=== PATIENT | male | born 1970 | race Caucasian/White ===

== ENCOUNTER 2020-11-07 06:04 | Day surgery (SDC) | payer BC ==
[~2020-11-07] VITALS: Ht 165.1 cm; Wt 90.7 kg
[2020-11-07 08:37] VITALS: BP 106/66
[2020-11-15] MEDS ORDERED: MULTI VIT PO (10:20)
[2020-11-15] MEDS ORDERED: ERYTHROMYCIN B250 MG PO (10:26)
== END 2020-11-07 08:20 | disposition home or self-care (01) | DRG 951 ==
LOC: ENDO 06:04
PROVIDERS: ATTEND Surgery
PROC: 0DBH8ZX Excision of Cecum, Via Natural or Artificial Opening Endoscopic, Diagnostic (ICD-10-PCS; principal; 2020-11-07)
PROC: 0DBG8ZX Excision of Left Large Intestine, Via Natural or Artificial Opening Endoscopic, Diagnostic (ICD-10-PCS; 2020-11-07)
PROC: 3E0H8KZ Introduction of Other Diagnostic Substance into Lower GI, Via Natural or Artificial Opening Endoscopic (ICD-10-PCS; 2020-11-07)
DX: Z12.11 Encounter for screening for malignant neoplasm of colon (principal); D12.0 Benign neoplasm of cecum; D12.5 Benign neoplasm of sigmoid colon; D64.9 Anemia, unspecified; F17.220 Nicotine dependence, chewing tobacco, uncomplicated

== ENCOUNTER 2020-11-21 09:53 | Inpatient (IN) | payer BC ==
[~2020-11-21] VITALS: Ht 165.1 cm; Wt 89.0 kg
[2020-11-21] VITALS (8 sets, daily range): BP systolic 103–112; BP diastolic 56–75
[~2020-11-21 09:53] MED LIST: ERYTHROMYCIN B250 MG PO; MULTI VIT PO
[2020-11-21] MEDS ORDERED: METRONIDAZOL500 MG PO (10:12)
--- NOTE | 2020-11-21 15:10 | NUR ---
RECEIEVE PATIENT AND REPORT FROM [place] AND SILVERWARE SALESPERSON VERN AT THIS TIME. PATIENT ALERT AND ORIENTED AND STATED HIS PAIN LEVEL AT THIS TIME WAS ONLY A "2-3" AT THIS TIME. PATIENT ABDOMINAL DRESSINGS ARE DRY AND INTACT AT THIS TIME AND ABDOMINAL BINDER IN PLACE. PATIENT GIVEN AN ICE PACK FOR ADDOMINAL AREA AT THIS TIME. PATIENT HAS A SWAN #16 KOREAN THAT WAS PLACED IN OR AND IS DRAINING CLEAR YELLOW URINE AT THIS TIME. PATIENT DENIES THE NEED FOR 02 AT THIS TIME AND SPO2 IS 97% CURRENTLY. PATIENT GIVEN ROOM ORIENTATION AND FALL PROCEDURE PAPER WORK SIGNED AND PLACE IN CHART. SIDERAILS ARE UP X 2 CALL LIGHT WITHIN REACH. PATIENT IS NPO AT THIS TIME.
--- NOTE | 2020-11-21 17:02 | NUR ---
PATIENT COMPLIANING OF ACHING PAIN IN ABDOMEN AT THIS TIME. 1MG OF DILUDID GIVEN IV AT THIS TIME FOR PAIN OF "7" OUT OF THE PAIN SCALE OF 0-10. WILL CONTINUE TO MONITOR.
--- NOTE | 2020-11-21 17:47 | NUR ---
PATIENT RESTING AT THIS TIME PATIENT STATES HIS PAIN IS A 3-4 AND HE FEELS MUCH BETTER SINCE PAIN MED WAS GIVEN. ABDOMINAL DRESSING REMAINS DRY AND INTACT AND BINDER ON AT THIS TIME. SIDERAILS ARE UP CALL LIGHT IS WITHIN REACH.
--- NOTE | 2020-11-21 18:50 | NUR ---
REPORT RECEIVED FROM Ismael CONRAD RN.
--- NOTE | 2020-11-21 20:22 | NUR ---
PATIENT RESTING COMFORTABLY AT THIS TIME.PHYSICAL ASSEMENT COMPLETED AT THIS TIME. MEDICATED FOR ABDOMINAL PAIN 10/21 RELATED TO RECENT PROCEDURE. INCICIONS NOT ACCESIBLE, PATIENT IS WEARING ABDOMINAL BINDER. NORMAL HEART SOUNDS, LUNGS CLEAR BILATERALLY, PATIENT IS TO BE ON 2L OXYGEN VIA NASAL CANNULA BUT IS REFUSING. PATIENT SATS AT 98% ON ROOM AIRN. ACTIVE BOWEL SOUNDS. @20 IN RAC SL. PLAN OF CARE REVIWED AT THIS TIME. REINFORCED SAFETY PRECAUTIONS. CALL LIGHT AND BEDSIDE TABLE WITHIN REACH.
--- NOTE | 2020-11-21 23:46 | NUR ---
PATIENT STATES HE HAS NO PAIN AT THE MOMENT. ANTIBIOTIC HUNG PER EMAR. CALL LIGHT AND BEDSIDE TABLE WITHIN REACH.
[2020-11-22 00:18] VITALS: BP 106/68
[2020-11-22 04:58] VITALS: BP 98/65
--- NOTE | 2020-11-22 05:51 | NUR ---
PATIENT RESTING COMOFRTABLY, REPORTS PAIN 4/10. MEDICATED PER EMAR, CALL LIGHT AND BEDSIDE TABLE WITHIN REACH.
[2020-11-22 06:28] LABS: HEMOGLOBIN 9.7 g/dl (14.0-18.0); IMMATURE GRANULOCYTES 0.2 % (0.0-5.0); MEAN CORPUSCULAR HGB 23.3 pG CALC (26.0-32.0); MEAN CORPUSCULAR HGB CONC 31.5 g/dL CAL (32.0-36.0); RED BLOOD COUNT 4.16 mill/uL (4.70-6.10); RED CELL DISTRI WIDTH 14.8 % (11.5-15.5)
--- NOTE | 2020-11-22 06:30 | NUR ---
REINFORCED THE IMPORTANCE OF USING INCENTIVE SPIROMETER. PATIENT VERBALIZES UNDERSTANDING, BUT REFUSES TO TRY BECAUSE IT HURTS HIS ABDOMEN.
[2020-11-22 06:43] LABS: ANION GAP 11 (6-22 (CALC)); BUN 8 mg/dL (9-20); BUN/CREATININE RATIO 8 (12-20 (CALC)); CARBON DIOXIDE 24 mmol/l (22-30); CHLORIDE 103 mmol/l (95-108); GFR > 60 ML/MIN (>=60 (CALC)); GFR FOR AFR.AMER. > 60 ML/MIN (>=60 (CALC)); POTASSIUM 4.1 mmol/l (3.5-5.1); SODIUM 133 mmol/l (137-146)
[2020-11-22 07:01] LABS: HEMATOCRIT 30.8 % (39.0-50.0)
[2020-11-22 07:27] VITALS: BP 105/68
--- NOTE | 2020-11-22 07:27 | NUR ---
PT IN BED UPON ENTERING ROOM. PT IS ALERT AND ORIENTED. ASSESSMENT AND VITALS COMPLETED. S1 AND S2 HEARD UPON ASCULTATION. BINDER IN PLACE. SWAN INTACT AND DRAINING VIA GRAVITY. IV PATENT AND HEALTHY. SKIN DRY AND WARM. PEDAL PULSES BILATERALLY STRONG. PT COMPLAINED ABOUT INCENTIVE SPIROMETER, HE STATED IT HURTS WHEN HE TAKES DEEP BREATHS. NO OTHER NEEDS ARE NEEDED AT THIS TIME. NO PAIN REPORTED AT THIS TIME. CALL LIGHT WITHIN REACH.
--- NOTE | 2020-11-22 12:00 | NUR ---
PT IN BED. NO DISTRESS NOTED. CALL LIGHT WITHIN REACH.
--- NOTE | 2020-11-22 13:05 | NUR ---
LASHONDA'Hilario SWAN PER DR. CLARKE ORDER. PT TOLERATED WELL. NO DISTRESS NOTED.
--- NOTE | 2020-11-22 14:40 | NUR ---
AMBULATED PT IN THE HALLWAY. PT TOLERATED WELL. NO DISTRESS NOTED. CALL LIGHT WITHIN REACH. PT VOIDED AFTER CATHETER REMOVAL 200 ML.
--- NOTE | 2020-11-22 16:00 | NUR ---
PT IN BED. NO DISTRESS NOTED. CALL LIGHT WITHIN REACH.
[2020-11-22 16:30] VITALS: BP 109/68
[2020-11-22 20:00] VITALS: BP 115/70
--- NOTE | 2020-11-22 20:22 | NUR ---
PATIENT ASSISTED OOB TO BR TO VOID 300CC OF SUSANA URINE IN URINAL. PATIENT MIN ASSIST TO AMBULATE IN SIFUENTES-SLOW STEADY GAIT AND RETURNED TO ROOM. PATIENT ENCOURAGED TO USE IS Q1H W/A IN REPS OF 10. WILL NEED REINFORCEMENT. IVF D51/2NS WITH 29KCL PATENT AND INFUSING VIA RAC SITE AT 125CC/HR. SITE IS HEALTHY AT THIS TIME. ASSISTED BACK INTO BED. ABD DRESSING IS INTACT WITH SOME OLD SHADOWING NOTED ON DRESSING. ABD IS SOFT WITH BS+. ABD BINDER REAPPLIED. TAKING ICE CHIPS AND TOLERATING WELL. PATIENT IS REFUSING ZOFRAN AT THIS TIME. MEDICATED WITH DILAUDID ORDERED FOR POST-OP PAIN. SCD'S APPLIED TO BOTH LEGS. NO PERIPHERAL EDEMA NOTED. PULSES ARE PALPABLE. SAFETY PRECAUTIONS REINFORCED. CALL LIGHT IN REACH. WILL CONT TO MONITOR.
--- NOTE | 2020-11-22 22:44 | NUR ---
PATIENT C/O SEVERE ABD PAIN-10/10 ON PAIN SCALE. MEDICATED WITH DILAUDID 1MG IVP ORDERED FOR PAIN.ABD BINDER ADJUSTED. ABD DRESSING REMAINS UNCHANGED. IVF PATENT AND INFUSING VIA RAC SITE AT 125CC/HR. SITE REMAINS HEALTHY. REMAINS NPO EXCEPT FOR ICE CHIPS. CALL LIGHT IN REACH. WIUL CONT TO MONITOR.
--- NOTE | 2020-11-22 23:30 | NUR ---
PATIENT CONT TO C/O SEVERE ABD PAIN-APPEARS TO BE GAS PAIN. PATIENT STATES ONLY SLIGHT IMPROVEMENT WITH DILAUDID ANBD THEN BACK TO 10/10 ON PAIN SCALE. MEDICATED WITH TORADOL SCHEDULED. PROVIDED FAN FOR COMFORT. RESTING IN BED. CALL LIGHT IN REACH. WILL CONT TO MONITOR.
[2020-11-23] VITALS (13 sets, daily range): BP systolic 84–149; BP diastolic 52–83
--- NOTE | 2020-11-23 00:20 | NUR ---
PATIENT CONT TO HAVE SEVERE ABD PAIN-ASSISTED PATIENT UP TO THE BR-PASSES SMALL AMT OF YELLOW STOOL. DENIES PASSING ANY GAS. ENCOURAGED PATIENT TO AMBULATE BUT STATES THAT HE IS "TOO SPENT" AND RETURNED TO BED. ENCOURAGED PATIENT TO TURN AND REPOSITION IN BED AND TO USE PILLOW TO SPLINT ABD. CALL LIGHT IN REACH. WILL CONT TO MONITOR.
--- NOTE | 2020-11-23 00:49 | NUR ---
PATIENT BACK UP AND COMING OUT OF THE BR-ASSISTED PATIENT BACK TO BED. INSTRUCTED PATIENT NOT TO STRAIN TO HAVE BM-STATES THAT HE UNDERSTANDS. PATIENT STATES THAT HE IS NOT PASSING FLATUS BUT THIS CABIN EQUIPMENT SUPERVISOR DID HEAR PATIENT PASS SOME GAS. ABD IS SOFT WITH BS+. DRESSING IS UNCHANGED AND ABD BINDER ADJUSTED. MEDICATED AGAIN WITH DILAUDID 1MG IVP FOR 10/10 PPAIN SCALE.AGAIN ENCOURAGED AMBULATION BUT PATIENT STATES THAT HE CAN'T. HYPERVENTALATING WITH RAPID SHALLOW RESP. INSTRUCTED ON RELAXATION TECH TO SLOW RESP RATE. STATES THAT HE WILL TRY. CALL LIGHT IN REACH. WILL CONT TO [id number].
--- NOTE | 2020-11-23 03:18 | NUR ---
PATIENT CALLED C/O POST-OP PAIN AGAIN-6/10 ON PAIN SCALE. MEDICATED WITH DILAUDID 1MG IVP ORDERED FOR PAIN. POSITIONED ON SIDE. IVF PATENT AND INFUSING VIA RAC SITE AT 125CC/HR. SITE REMAINS HEALTHY. STILL NPO EXCEPT FOR ICE CHIPS. CALL LIGHT IN REACH. WILL CONT TO MONITOR.
--- NOTE | 2020-11-23 08:46 | NUR ---
PT REQUESTING PAIN MEDICATION FOR ABD PAIN 07/22. CURRENT VS 86/56, HR 124. IV DILAUDID NOT ADMINISTERED AT THIS TIME AND WASTED WITH SECOND NURSE KARINE SUGGS. ENCOURAGED PT TO GET OOB AND AMBULATE TO HELP RELIEVE GAS PAIN. BOWEL SOUNDS PRESENT AND ABD IN PLACE.
--- NOTE | 2020-11-23 09:05 | NUR ---
PT AMBULATED SHORT DISTANCE DOWN SIFUENTES WITH ASSISTANCE. ABD BINDER IN PLACE. PT STATES " I FEEL QUEEZY" PT AMBULATED BACK TO ROOM WITHOUT INCIDENT. PT VS ONCE BACK INTO BED 101/70 HR 115 95% ON RA, RR 24.
--- NOTE | 2020-11-23 09:15 | NUR ---
PT VOIDED 250 ML SUSANA COLORED OUTPUT IN URINAL. PT DENIES ANY DIFFICULTY URINATING.
--- NOTE | 2020-11-23 10:20 | NUR ---
DR. CLARKE AT BEDSIDE TO DISCUSS POC. ABD DRESSING REMOVED.
--- NOTE | 2020-11-23 10:38 | NUR ---
UPDATED AT THIS TIME.
--- NOTE | 2020-11-23 12:16 | NUR ---
FRUIT LOADER AT BEDSIDE TO OBTAIN LABS.
--- NOTE | 2020-11-23 12:28 | NUR ---
PT AMBULATED SHORT DISTANCE IN SIFUENTES WITH STEADY GAIT. NO APPARENT DISTRESS NOTED. PT VOIDED IN URINAL PRIOR TO AMBULATING 150 ML DARK SUSANA OUTPUT NOTED. PT BACK INTO BED SITTING UP AT BEDSIDE. EDUCATION PROVIDED ABOUT CT AND PO CONTRAST. PT VERBALIZED UNDERSTANDING. CALL LIGHT WITHIN REACH. WILL CONTINUE TO MONITOR.
[2020-11-23 12:35] LABS: HEMATOCRIT 35.8 % (39.0-50.0); HEMOGLOBIN 10.7 g/dl (14.0-18.0); IMMATURE GRANULOCYTES 0.2 % (0.0-5.0); MEAN CELL VOLUME 75.4 fL CALC (80.0-100.0); MEAN CORPUSCULAR HGB 22.5 pG CALC (26.0-32.0); MEAN CORPUSCULAR HGB CONC 29.9 g/dL CAL (32.0-36.0); NEUT# 4.12 thou/uL (1.82-7.42); RED BLOOD COUNT 4.75 mill/uL (4.70-6.10)
[2020-11-23 12:57] LABS: ANION GAP 12 (6-22 (CALC)); BUN 11 mg/dL (9-20); BUN/CREATININE RATIO 9 (12-20 (CALC)); CARBON DIOXIDE 22 mmol/l (22-30); CHLORIDE 106 mmol/l (95-108); CREATININE 1.2 mg/dL (0.7-1.3); GFR > 60 ML/MIN (>=60 (CALC)); GFR FOR AFR.AMER. > 60 ML/MIN (>=60 (CALC)); SODIUM 134 mmol/l (137-146)
[2020-11-23 13:00] LABS: POTASSIUM 5.5 mmol/l (3.5-5.1)
--- NOTE | 2020-11-23 13:30 | NUR ---
LAST DOSE OF ORAL CONTRAST ADMINISTERED. RADIOLOGY DEPARTMENT NOTIFIED. PT TO RADIOLOGY IN 1 HR AT 1430.
--- NOTE | 2020-11-23 13:55 | NUR ---
DR. CLARKE UPDATED ABOUT PT STATUS AT THIS TIME.
--- NOTE | 2020-11-23 14:25 | NUR ---
PT TO RADIOLOGY IN STABLE CONDITION VIA WHEELCHAIR ACCOMPAINED BY TRANSPORT STAFF.
--- NOTE | 2020-11-23 14:50 | NUR ---
PT ARRIVED BACK TO FLOOR FROM RADIOLOGY VIA WHEELCHAIR IN STABLE CONDITION.
--- NOTE | 2020-11-23 15:17 | NUR ---
PT VOIDED 50ML CLEAR SUSANA OUTPUT IN URINAL AT THIS TIME.
--- NOTE | 2020-11-23 15:44 | NUR ---
PT MEDICATED FOR ABD PAIN 09/21 WITH IV DILAUDID. ASSISTED PT WITH REPOSITIONING IN BED. CALL LIGHT WITHIN REACH. WILL CONTINUE TO MONITOR.
--- NOTE | 2020-11-23 16:30 | NUR ---
PT REQUESTING EMOTIONAL SUPPORT WANTING HIS HERE PRIOR TO EXPLORATORY SURGERY. APPROVAL FROM SUPERVISION. NOTIFIED.
--- NOTE | 2020-11-23 17:00 | NUR ---
PT LEFT FLOOR VIA BED IN STABLE CONDITION ACCOMPAINED BY OR STAFF.
--- NOTE | 2020-11-23 19:15 | NUR ---
SBAR REPORT RECEIVED FROM ERIC GARCIA. PATIENT OFF UNIT IN SURGERY.
--- NOTE | 2020-11-23 21:36 | NUR ---
SPOKE WITH MOSES NURSE PRACTITIONER REGARDING LOVENOX. ORDER GIVEN TO HOLD DOSE FOR TONIGHT.
[2020-11-24] VITALS (7 sets, daily range): BP systolic 84–149; BP diastolic 55–85
--- NOTE | 2020-11-24 02:12 | NUR ---
LATE ENTRY 11/23/202029 PATIENT RECEIVED FROM SURGERY, SBAR AT BEDSIDE. PATIENT ALERT AND ORIENTED. NG TUBE NOTED IN RIGHT NARE. LOW CONTINUOUS SUCTION, BROWN DRAINAGE NOTED. ABDOMEN DISTENDED AND TENDER. DRESSING CLEAN DRY AND INTACT. 2 RAINE DRAINS NOTED, ONE ON EACH SIDE OF ABDOMEN. URINARY CATHETER TO GRAVITY, SUSANA URINE. SCD TO BILATERAL LOWER EXTREMITIES. DENIES PAIN AT THIS TIME, NO DISTRESS NOTED. CALL LIGHT WITHIN REACH.
--- NOTE | 2020-11-24 02:33 | NUR ---
RESTING QUIETLY EYES CLOSED. EMPTIED RAINE DRAIN #1, 75ML OF DRAINAGE NOTED.
[2020-11-24 08:30] LABS: HEMOGLOBIN 9.5 g/dl (14.0-18.0); IMMATURE GRANULOCYTES 0.6 % (0.0-5.0); MEAN CELL VOLUME 75.1 fL CALC (80.0-100.0); MEAN CORPUSCULAR HGB CONC 30.6 g/dL CAL (32.0-36.0); NEUT# 6.99 thou/uL (1.82-7.42); RED BLOOD COUNT 4.13 mill/uL (4.70-6.10); RED CELL DISTRI WIDTH 15.5 % (11.5-15.5)
--- NOTE | 2020-11-24 08:44 | NUR ---
PHYSICIAN AT BEDSIDE TO DISCUSS POC.
[2020-11-24 08:54] LABS: ANION GAP 9 (6-22 (CALC)); BUN 12 mg/dL (9-20); BUN/CREATININE RATIO 12 (12-20 (CALC)); CARBON DIOXIDE 21 mmol/l (22-30); CHLORIDE 109 mmol/l (95-108); GFR > 60 ML/MIN (>=60 (CALC)); GFR FOR AFR.AMER. > 60 ML/MIN (>=60 (CALC)); SODIUM 135 mmol/l (137-146)
[2020-11-24 08:57] LABS: POTASSIUM 4.1 mmol/l (3.5-5.1)
--- NOTE | 2020-11-24 11:02 | NUR ---
PT REPOSITIONED IN BED X2 PERSON ASSIST. PT C/O MILD LOWER ABDOMINAL DISCOMFORT 06/21 THAT IMPROVED WITH REPOSITIONING. NG TUBE @ [facility] WITH GREEN OUTPUT NOTED. O2 TITRATED DOWN TO 1L/M SAT 99%. SWAN CATHETHER PATENT DRAINING TO GRAVITY. IV SITE APPEARS HEALTHY WITH IVF INFUSING. DAYLIGHT DRILLER AND SCDS IN PLACE. REMAINS AT BEDSIDE. ICE CHIPS PROVIDED AT REQUEST. CALL LIGHT WITHIN REACH. WILL CONTINUE TO MONITOR.
--- NOTE | 2020-11-24 12:35 | NUR ---
PT LEFT FLOOR IN STABLE CONDITION VIA BED ACCOMPAINED BY KAVIN MCCLELLAN.
--- NOTE | 2020-11-24 13:17 | NUR ---
DR. CLARKE AT BEDSIDE TO DISCUSS POC WITH . PT STILL IN RADIOLOGY AT THIS TIME.
[2020-11-24 14:38] LABS: CHOLESTEROL HDL RATIO 4.1 (<4.4 (CALC)); MAGNESIUM 1.3 mg/dL (1.6-2.3)
--- NOTE | 2020-11-24 15:35 | NUR ---
THAI RN AT BEDSIDE TO ADMINISTER IV LOPRESSOR FOR AFIB WITH HR OF 120. CURRENT BP 151/89. REMAINS AT BEDSIDE. CALL LIGHT WITHIN REACH. WILL CONTINUE TO MONITOR.
--- NOTE | 2020-11-24 23:20 | NUR ---
11/24/20 2100 RESTING QUIETLY IN BED, SPOUSE AT BEDSIDE. NGT TO LOW CONTINUOUS SUCTION, GREEEN DRAINAGE NOTED. RESPIRATIONS EVEN AND UNLABORED, EXPIRATORY WHEEZES NOTED. ABDOMEN DISTENDED, TENDER TO TOUCH. RAINE DRAIN PATENT. SWAN TO GRAVITY, DARK SUSANA URINE NOTED. NO DISTRESS NOTED AT THIS TIME. VERBALIZES PAIN 3 ON SCALE 0-10. CALL LIGHT WITHIN REACH.
[2020-11-25] VITALS: BP 137/85
[2020-11-25 04:00] VITALS: BP 124/81
--- NOTE | 2020-11-25 04:51 | NUR ---
RESTING IN BED EYES CLOSED, APPEARS COMFORTABLE. CALL LIGHT WITHIN REACH.
--- NOTE | 2020-11-25 07:00 | NUR ---
PT REPORT RECEIVED FROM NIGHT NURSEROHAN
[2020-11-25 08:00] VITALS: BP 118/69
--- NOTE | 2020-11-25 08:00 | NUR ---
PT WAS FOUND RESTING IN BED IN SEMI-TILLMAN'S POSITION;PT IS A&OX3; IS AT BEDSIDE; VS AND ASSESSMENT WERE COMPLETED;HEART SOUNDS ARE REGULAR IN RATE AND RHYTHM;TELE IS IN PLACE;LUNG SOUNDS ARE CLEAR;RESPIRATIONS ARE EVEN AND UNLABORED ON RA;SWAN IS IN PLACE DRAINING CLEAR SUSANA URINE;PT HAS AN NG TUBE IN RT NARE WITH GREEN DRAINAGE AT THIS TIME;PT IS POST OP WITH 2 RAINE DRAINS/RT AND LEFT;DRAINS CURRENTLY ARE DRAINING SANGUINOUS/SEROSANGUINOUS WITH SMALL CLOTS;PT SURGICAL DRESSING IS CDI WITH AN ABDOMINAL BINDER ON TOP;PT HAS A DUAL LUMEN PICC LINE IN GRACIA;PT HAS TPN CURRENTLY RUNNING AT 84ML/HR;IV SITE APPEARS FREE OF COMPLICATIONS AT THIS TIME;PT HAS SCDS IN PLACE;SAFETY PRECAUTIONS IN PLACE;CALL LIGHT WITHIN REACH;PT ENCOURAGED TO CALL WITH ANY NEEDS OR CONCERNS;BED IN LOWEST POSITION;WILL CONTINUE TO MONITOR.
[2020-11-25 09:55] LABS: ALKALINE PHOSPHATASE 43 u/l (38-126); ANION GAP 8 (6-22 (CALC)); BUN 14 mg/dL (9-20); BUN/CREATININE RATIO 15 (12-20 (CALC)); CARBON DIOXIDE 23 mmol/l (22-30); CHLORIDE 108 mmol/l (95-108); GFR > 60 ML/MIN (>=60 (CALC)); GFR FOR AFR.AMER. > 60 ML/MIN (>=60 (CALC)); POTASSIUM 3.4 mmol/l (3.5-5.1); SGOT/AST 17 u/l (17-59); SODIUM 135 mmol/l (137-146)
[2020-11-25 10:07] LABS: ALBUMIN 2.1 g/dL (3.2-5.0); BILIRUBIN, TOTAL 0.4 mg/dL (0.0-1.4); MAGNESIUM 1.9 mg/dL (1.6-2.3); TOTAL PROTEIN 4.4 g/dL (6.3-8.2)
--- NOTE | 2020-11-25 10:30 | NUR ---
AND NORMA GHOTRA AT BEDSIDE DISCUSSING POC WITH PT
[2020-11-25 10:45] VITALS: BP 116/73
--- NOTE | 2020-11-25 12:00 | NUR ---
PT WAS FOUND RESTING IN BED; AT BEDSIDE;TELE IS IN PLACE;SCDS IN PLACE;NG TUBE IS DRAINING GREEN LIQUID;SWAN WAS REMOVED AND PT IS ABLE TO URINATE WITHOUT ISSUE IN URINAL;SAFETY PRECAUTIONS IN PLACE;CALL LIGHT WITHIN REACH;WILL CONTINUE TO MONITOR.
[2020-11-25 15:01] VITALS: BP 132/61
--- NOTE | 2020-11-25 16:00 | NUR ---
PT WAS FOUND RESTING IN BEDSIDE CHAIR;PT AMBULATED WITH ASSISTANCE TO CHAIR;TELE IS IN PLACE;RAINE DRAINS ARE DRAINING SEROSANGINOUS FLUID;NG TUBE IN PLACE DRAINING LIGHT GREEN LIQUID;DRESSING CHANGE WAS DONE;4X4,GAUZE,DRAIN, SPONGES,ABD PAD AND TAPE WERE USED FOR DRY DRESSING CHANGE;ABDOMINAL BINDER WAS PLACED BACK ON TOP;SAFETY PRECAUTIONS IN PLACE;CALL LIGHT WITHIN REACH;WILL CONTINUE TO MONITOR.
[2020-11-25 19:00] VITALS: BP 124/63
--- NOTE | 2020-11-25 20:00 | NUR ---
PHYSICAL ASSESMENT COMPLETE. PT REPORTS A 5 OUT OF 10 ON THE PAIN ON THE PAIN SCALE. SCHEDULED MEDICATIONS AND PRN MEDICATION ADMINISTERED, SEE E-MAR.PT DID REPORT A SMALL BOWEL MOVEMENT. PT DENIES ANY NEEDS AT THIS TIME. PLAN OF CARE REVIEWED, PT DENIES QUESTIONS, VERBALIZES UNDERSTANDING. ITEMS WITHIN REACH, BED LOCKED IN LOW POSITION W/ BEDRAILS UP X2. REMAIN BEDSIDE. PREVIOUSLY GIVEN MANAGEMENT PERMISSION TO REMAIN BEDSIDE. CALL TEAGUE WITHIN REACH, AGREES TO CALL PRN.
[2020-11-26] VITALS: BP 122/75
--- NOTE | 2020-11-26 | NUR ---
PT LAYING IN BED APPEARS COMFORTABLE. NG TUBE PLACED; SUCTION ON LOW CONTINUOUS SUCTION. SCD IN PLACE. RESPIRATIONS REGULAR AND UNLABORED. ITEMS REMAIN WITHIN REACH, CALL TEAGUE REMAINS WITHIN REACH. BED REMAINS LOCKED AND IN LOW POSITION WITH BEDRAILS UP X2. WILL CONTINUE TO MONITOR.
[2020-11-26 04:00] VITALS: BP 119/58
[2020-11-26 06:49] LABS: ALBUMIN 2.2 g/dL (3.2-5.0); ALKALINE PHOSPHATASE 49 u/l (38-126); ANION GAP 10 (6-22 (CALC)); BILIRUBIN, TOTAL 0.4 mg/dL (0.0-1.4); BUN 17 mg/dL (9-20); BUN/CREATININE RATIO 19 (12-20 (CALC)); CARBON DIOXIDE 23 mmol/l (22-30); CHLORIDE 107 mmol/l (95-108); CREATININE 0.9 mg/dL (0.7-1.3); GFR > 60 ML/MIN (>=60 (CALC)); GFR FOR AFR.AMER. > 60 ML/MIN (>=60 (CALC)); MAGNESIUM 2.3 mg/dL (1.6-2.3); POTASSIUM 3.4 mmol/l (3.5-5.1); SGOT/AST 17 u/l (17-59); SODIUM 136 mmol/l (137-146); TOTAL PROTEIN 4.6 g/dL (6.3-8.2)
[2020-11-26 08:00] VITALS: BP 134/62
--- NOTE | 2020-11-26 10:19 | NUR ---
PT SEEN AT REST IN THE BED, ALERT AND ORIENTED X 3. LUNGS CLEAR, RA. ABDOMEN DISTENDED SOFT, JPs X 2 SEEN. PT ABLE TO STAND AT BEDSIDE TO VOID WITH ASSIST TO STAND. NG IN PLACE, LIS. PAIN UNDER CONTROL MOSTLY. AT BEDSIDE.
[2020-11-26 10:40] VITALS: BP 140/80
--- NOTE | 2020-11-26 13:50 | NUR ---
PT SEEN BY DR CLARKE THIS MORNING. NG REMOVED, PT CHANGED TO PO PAIN MED. PT OOB TO BR EVERY HOUR OR TWO.
[2020-11-26 15:50] VITALS: BP 123/75
--- NOTE | 2020-11-26 18:30 | NUR ---
PT TOLERATING PO FAIRLY WELL, TAKING IT EASY ON WHAT HE EATS. REMAINS AT BEDSIDE, NO DISTRESS NOTED.
[2020-11-26 18:50] VITALS: BP 129/80
--- NOTE | 2020-11-26 20:00 | NUR ---
RECEIVED REPORT FROM NURSE COLES PATIENT RESTING IN BED, WIDE IN ROOM, WITH DOUBLE LUMEN PICC LINE ON GRACIA, PATENT FLUSHES WELL GOOD BLOOD RETURN, HOOKED ON TELEMETRY SR 76, LBM 11/26, DRESSING CLEAN AND DRY, ORDER FOR DAILY DRESSING CHANGED, NEW DRESSING IN PLACE, RAINE DRAIN X 2, RT RAINE EMPTIED 50CC OF SEROSANGUINEOUS FLUID, ACTIVE BOWEL SOUNDS,BINDER IN PLACE, PAIN ON ABDOMEN TOLERABLE, NOTED TO HAVE SCROTAL EDEMA, CALL LIGHT AT REACH.
[2020-11-27] VITALS (7 sets, daily range): BP systolic 112–149; BP diastolic 69–81
--- NOTE | 2020-11-27 00:05 | NUR ---
PATIENT C/O PAIN ON OPERATIVE SITE PS 5/10, PRN PERCOCET GIVEN, RAINE DRAING EMPTIED, PATIENT AMBULATED INSIDE THE ROOM, USING WALKER.
--- NOTE | 2020-11-27 02:22 | NUR ---
CLINIMIX VERIFIED WITH ANOTHER RN, HUNG AT THIS TIME.
--- NOTE | 2020-11-27 04:16 | NUR ---
PATIKENT RESTING IN BED WITH EYES CLOSED, BREATHIMG EVEN UNLABORED, CALL LIGHT AT REACH.
[2020-11-27 06:48] LABS: ALBUMIN 2.3 g/dL (3.2-5.0); ALKALINE PHOSPHATASE 72 u/l (38-126); ANION GAP 7 (6-22 (CALC)); BILIRUBIN, TOTAL 0.3 mg/dL (0.0-1.4); BUN 14 mg/dL (9-20); BUN/CREATININE RATIO 17 (12-20 (CALC)); CARBON DIOXIDE 27 mmol/l (22-30); CHLORIDE 103 mmol/l (95-108); CREATININE 0.9 mg/dL (0.7-1.3); GFR > 60 ML/MIN (>=60 (CALC)); GFR FOR AFR.AMER. > 60 ML/MIN (>=60 (CALC)); MAGNESIUM 2.2 mg/dL (1.6-2.3); POTASSIUM 3.4 mmol/l (3.5-5.1); SGOT/AST 18 u/l (17-59); SODIUM 134 mmol/l (137-146); TOTAL PROTEIN 4.8 g/dL (6.3-8.2)
--- NOTE | 2020-11-27 07:00 | NUR ---
RECIEVED REPORT FROM IFEANYI MENDOZA
--- NOTE | 2020-11-27 09:14 | NUR ---
PT SITTING ON COUCH NEXT TO . PT IS A/O X3. ASSESSMENT AND VITALS COMPLETED. RESIRATIONS ARE EVEN AND UNLABORED ON ROOM AIR. LUNG SOUNDS ARE CLEAR. HEART RHYTHM NORMAL WITH TELE IN PLACE, SR PER ER MONITORING. BOWEL SOUNDS ARE ACTIVE. PT REPORTS ALOT OF GAS. MOD SOFT BROWN BM NOTED. PEDAL PULSES WEAK. 1+ EDEMA NOTED. GRACIA PICC INFUSING WITH TPN PER ORDER, SITE REMAINS HEALTHY AND PATENT. DRESSING TO ABD REMAINS CDI. 70CC OF BLOODY OUTPUT NOTED FROM RIGHT RAINE. MINIMAL BLOODY OUTPUT NOTED FROM LEFT RAINE. BULBS RESUCTIONED. PT COMPLAINS OF 4/10 GENERALIZED PAIN. PT MEDICATED PER EMAR. PT DENIES OF ANY ADDITIONAL NEEDS AT THIS TIME. ALL SAFETY PRECAUTIONS ARE IN PLACE WITH CALL LIGHT IN REACH. WILL CONTINUE TO MONITOR.
--- NOTE | 2020-11-27 11:55 | NUR ---
PT RESTING IN SEMI FOWLERS POSITION. RESPIRATIONS ARE EVEN AND UNLABORED WITH NO DISTRESS NOTED ON ROOM AIR. TPN INFUSING TO GRACIA PICC, SITE REMAINS HEALTHY AND PATENT. RAINE DRAINS REMAINS IN PLACE. PT STATES PAIN IS NOW 1/10 AFTER PAIN MEDICATION. PT DENIES OF ANY ADDITIONAL NEEDS. ALL SAFETY PRECAUTIONS ARE IN PLACE WITH CALL LIGHT IN REACH. AT BEDSIDE. WILL CONTINUE TO MONITOR.
--- NOTE | 2020-11-27 14:28 | NUR ---
LEFT RAINE DRAIN REMOVED. PT TOLERATED WELL. DRESSING REMAINS CDI. ABD PAD AND GUAZE APPLIED TO MIDLINE INCISION AND RIGHT RAINE DRAIN. NOTED 120 BLOODY OUTPUT FROM RIGHT AND 5 BLOODY FROM LEFT.ABD BINDER REAPPLIED. SCHEDULED TPN AND LIPIDS ADMINISTERED.PT C/O OF ABD PAIN, PT REFUSES DILAUDID. STATES HE WILL WAIT FOR ULTRAM. ALL SAFETY PRECAUTIONS ARE IN PLACE WITH CALL LIGHT IN REACH. WILL CONTINUE TO MONITOR
--- NOTE | 2020-11-27 15:36 | NUR ---
PT RESTIG IN SEMI FOWLERS POSITION WITH AT BEDSIDE . RESPIRATIONS ARE EVEN AND UNLABORED. TPN AND LIPIDS INFUSING IN GRACIA PICC, SITE REMAINS HEALTHY AND PATENT. TELE MONITORING IN PLACE. PT COMPLAINS OF 5/10 PAIN, PT MEDICATED PER EMAR. PT DENIES OF ANY ADDITIONAL NEEDS AT THIS TIME. ALL SAFETY PRECAUTIONS ARE IN PLACE WITH CALL LIGHT IN REACH. WILL CONTINUE TO MONITOR.
--- NOTE | 2020-11-27 20:00 | NUR ---
PHYSICAL ASSESMENT COMPLETE. PT CURRENTLY DENIES PAIN OR DISCOMFORT. SCHEDULED MEDICATIONS AND PRN MEDICATION ADMINISTERED, SEE E-MAR. RAINE DRAIN EMPTIED OF 135 ML OF SEROSANGUINOUS FLUID. PT DENIES ANY NEEDS AT THIS TIME. PLAN OF CARE REVIEWED, PT DENIES QUESTIONS, VERBALIZES UNDERSTANDING. ITEMS WITHIN REACH, BED LOCKED IN LOW POSITION W/ BEDRAILS UP X2. CALL TEAGUE WITHIN REACH, AGREES TO CALL PRN.
--- NOTE | 2020-11-28 | NUR ---
PT LAYING IN BED WITH EYES CLOSED, APPEARS TO BE SLEEPING, APPEARS COMFORTABLE AND IN NO DISTRESS. RESPIRATIONS REGULAR AND UNLABORED. IV ZOSYN VERONICA. PT TPN RUNNING IN SEPERATE PORT AT 84 ML PER HOUR. ITEMS REMAIN WITHIN REACH, CALL TEAGUE REMAINS WITHIN REACH. BED REMAINS LOCKED AND IN LOW POSITION WITH BEDRAILS UP X2. WILL CONTINUE TO MONITOR.
--- NOTE | 2020-11-28 04:02 | NUR ---
PT RESTING IN BED, NO SIGNS OF DISTRESS NOTED, RESP EVEN AND UNLABORED. PT VOICES NO NEEDS OR COMPLAINTS AT THIS TIME. CALL LIGHT IN REACH, CONTINUE TO MONITOR.
[2020-11-28 04:52] VITALS: BP 116/75
[2020-11-28 06:33] LABS: HEMATOCRIT 26.1 % (39.0-50.0); HEMOGLOBIN 8.1 g/dl (14.0-18.0); MEAN CELL VOLUME 74.1 fL CALC (80.0-100.0); NEUT# 4.71 thou/uL (1.82-7.42); RED BLOOD COUNT 3.52 mill/uL (4.70-6.10); RED CELL DISTRI WIDTH 15.8 % (11.5-15.5)
--- NOTE | 2020-11-28 07:00 | NUR ---
RECIEVED REPORT FROM JOHN. SUGGS
[2020-11-28 07:07] LABS: IMMATURE GRANULOCYTES 19.7 % (0.0-5.0)
[2020-11-28 07:25] VITALS: BP 123/71
--- NOTE | 2020-11-28 07:25 | NUR ---
PT RESTING IN SEMI FOWLERS POSITION, AT BEDSIDE. PT IS A/O X3. ASSESSMENT AND VITALS COMPLETED. RESPIRATIONS ARE EVEN AND UNLABORED ON ROOM AIR. LUNG SOUNDS ARE CLEAR. HEART RHYTHM NORMAL WITH TELE IN PLACE. BOWEL SOUNDS ARE ACTIVE, BM NOTED. GRACIA PICC INFUSING WITH TPN, SITE REMAINS HEALTHY AND PATENT. SKIN INTACT. DRESSING TO ABD CDI, ABD BINDER REAPPLIED. RIGHT RAINE DRAIN IN PLACE, 70 ORANGISH OUTPUT NOTED. SCDS IN PLACE. PT DENIES OF ANY PAINS OR DISCOMFORTS AT THIS TIME. ALL SAFETY PRECAUTIONS ARE IN PLACE WITH CALL LIGHT IN REACH. WILL CONTINUE TO MONITOR.
--- NOTE | 2020-11-28 09:16 | NUR ---
DR CLARKE AT BEDSIDE
[2020-11-28 09:17] LABS: ALBUMIN 2.3 g/dL (3.2-5.0); BILIRUBIN, TOTAL 0.2 mg/dL (0.0-1.4); BUN 13 mg/dL (9-20); BUN/CREATININE RATIO 16 (12-20 (CALC)); CARBON DIOXIDE 27 mmol/l (22-30); CHLORIDE 101 mmol/l (95-108); CREATININE 0.8 mg/dL (0.7-1.3); GFR > 60 ML/MIN (>=60 (CALC)); GFR FOR AFR.AMER. > 60 ML/MIN (>=60 (CALC)); MAGNESIUM 2.2 mg/dL (1.6-2.3); SGOT/AST 24 u/l (17-59); SODIUM 135 mmol/l (137-146); TOTAL PROTEIN 4.9 g/dL (6.3-8.2)
[2020-11-28 09:20] LABS: ALKALINE PHOSPHATASE 113 u/l (38-126); ANION GAP 11 (6-22 (CALC)); POTASSIUM 4.1 mmol/l (3.5-5.1)
[2020-11-28] MEDS ORDERED: TRAMADOL HCL50 MG PO (09:45)
--- NOTE | 2020-11-28 10:02 | NUR ---
VERBAL ORDERS FROM DR CLARKE TO REMOVE RIGHT RAINE DRAIN. RAINE DRAIN REMOVED, PT TOLERATED WELL. 85CC OF SUSANA OUTPUT NOTED. DRESSING TO LEFT AND RIGHT LOWER QUADRANTS REMAINS CDI. DRY DRESSING TO MIDLINE CHANGED. HONG REMAINS IN PLACE. PT DENIES OF ANY PAINS OR ADDITIONAL NEEDS AT THIS TIME. ALL SAFETY PRECAUTIONS ARE IN PLACE.
[2020-11-28 10:05] VITALS: BP 115/53
[2020-11-28] MEDS ORDERED: AMOX/K CLAV875 M1 PO (10:11)
--- NOTE | 2020-11-28 11:44 | NUR ---
PT RESTING IN SEMI FOWLERS POSITION WITH AT BEDSIDE.RESPIRATIONS ARE EVEN AND UNLABORED WITH NO DISTRESS NOTED. DRESSING TO ABD CDI WITH BINDER IN PLACE. TPN INFUSING PER ORDER, PICC REMAINS CDI.TELE MONITORING IN PLACE. PT DENIES OF ANY PAINS OR DISCOMFORTS AT THIS TIME. ALL SAFETY PRECAUTIONS ARE IN PLACE WITH CALL LIGHT IN REACH. WILL CONTINUE TO MONITOR.
--- NOTE | 2020-11-28 11:51 | NUR ---
DR AVILEZ AND JIMENEZ,ANABRAHAN AT BEDSIDE
[2020-11-28 14:05] VITALS: BP 112/65
--- NOTE | 2020-11-28 15:50 | NUR ---
PT RESTING IN SEMI FOWLERS POSITION WITH WIDE AT BEDSIDE. REPSIRATIONS ARE EVEN AND UNLABORED WITH ON DISTRESS NOTED. GRACIA PICC REMAINS IN PLACE, SITE REMAINS HEALTHY AND PATENT. TELE MONITORING IN PLACE. PT COMPLAINS OF 5/10 ABD PAIN. PT MEDICATED PER EMAR. PT DENIES OF ANY PAINS OR DISCOMFORTS. ALL SAFETY PRECAUTIONS ARE IN PLACE WITH CALL LIGHT IN REACH. WILL CONTINUE TO MONITOR.
--- NOTE | 2020-11-28 18:50 | NUR ---
PT STATES THAT DINNER DINNER HAD MADE HIM NAUSEA. GRILLED CHEESE ORDERED. PT TOLERATED WELL. PT REQUEST TO STAY ONE MORE NIGHT. DR CLARKE NOTIFIED. REMAINS AT BEDSIDE.
[2020-11-28 19:00] VITALS: BP 136/70
--- NOTE | 2020-11-28 19:15 | NUR ---
REPORT RECEIVED FROM Ekaterina PINA LPN
--- NOTE | 2020-11-28 19:50 | NUR ---
PATIENT RESTING WITH AT BEDSIDE.ASSESSMENT COMPLETED AT THIS TIME. RESPIRATIONS ARE EVEN AND UNLABORED ON ROOM AIR. LUNG SOUNDS ARE CLEAR. HEART RHYTHM NORMAL WITH TELE IN PLACE. BOWEL SOUNDS ARE ACTIVE, LAST REPORTED BM 11/28/20 GRACIA PICC SL SITE REMAINS HEALTHY AND PATENT. SKIN INTACT. ABD BINDER IN PLACE. SCDS IN PLACE. PATIENT REQUESTING "SCHEDULED" PAIN MEDICATION, ADVISED PATIENT HE HAS PRN MEDICATION AND HAS TO REQUEST IT. ALL SAFETY PRECAUTIONS ARE IN PLACE WITH CALL LIGHT IN REACH. WILL CONTINUE TO MONITOR.
[2020-11-29 04:00] VITALS: BP 119/72
--- NOTE | 2020-11-29 04:00 | NUR ---
PATIENT SLEEPING SOUNDLY, AT BEDSIDE. CALL LIGHT AND BEDSIDE TABLE WITH IN REACH.
--- NOTE | 2020-11-29 07:00 | NUR ---
RECIEVED REPORT FROM IFEANYI MICHELLE
[2020-11-29 08:24] VITALS: BP 116/71
--- NOTE | 2020-11-29 08:30 | NUR ---
PT RESTING IN SEMI FOWLERS POSITION WITH AT BEDSIDE. PT IS A/O X3. ASSESSMENT AND VITALS COMPLETED. RESPIRATIONS ARE EVEN AND UNLABORED ON ROOM AIR, NO DISTRESS NOTED. LUNG SOUNDS ARE CLEAR. HEART RHYTHM NORMAL. BOWEL SOUNDS ARE ACTIVE. BM X2 NOTED. SKIN INTACT. PULSES STRONG. GRACIA DOUBLE LUMEN PICC FLUSHED,BLOOD RETURN NOTED. DRESSING TO MIDLINE REMAINS CDI. ABD BINDER IN PLACE. PT COMPLAINS OF 3/10 PAIN, REQUEST TO HOLD ON PAIN MEDCIATIONS. PT DENIES OF ANY ADDITIONAL NEEDS AT THIS TIME. ALL SAFETY PRECAUTIONS ARE IN PLACE WITH CALL LIGHT IN REACH. WILL CONTINUE TO MONITOR.
--- NOTE | 2020-11-29 10:00 | NUR ---
BLOOD RECIEVED FROM PICC LINE AT THIS TIME. TPN DC 11/29/20. SITE FLUSHED WITH SALINE AND HEPARIN. SITE REMAINS HEALTHY AND PATENT.
[2020-11-29 10:25] LABS: ALBUMIN 2.5 g/dL (3.2-5.0); ALKALINE PHOSPHATASE 118 u/l (38-126); ANION GAP 9 (6-22 (CALC)); BILIRUBIN, TOTAL 0.2 mg/dL (0.0-1.4); BUN 12 mg/dL (9-20); BUN/CREATININE RATIO 16 (12-20 (CALC)); CARBON DIOXIDE 26 mmol/l (22-30); CHLORIDE 102 mmol/l (95-108); CREATININE 0.8 mg/dL (0.7-1.3); GFR > 60 ML/MIN (>=60 (CALC)); GFR FOR AFR.AMER. > 60 ML/MIN (>=60 (CALC)); POTASSIUM 4.1 mmol/l (3.5-5.1); SGOT/AST 27 u/l (17-59); SODIUM 133 mmol/l (137-146); TOTAL PROTEIN 5.3 g/dL (6.3-8.2)
[2020-11-29 10:40] VITALS: BP 139/87
--- NOTE | 2020-11-29 12:12 | NUR ---
PT RESTING IN CHAIRWITH AT SIDE. RESPIRATIONS REMAINS EVEN AND UNLABORED WITH NO DISTRESS NOTED. DRESSING TO MIDLINE REMAINS CDI. PICC LINE REMAINS IN PLACE. PT STATES TORADOL HAS HELP. PT DENIES OF ANY ADDITION NEEDS AT THIS TIME.ALL SAFETY PRECAUTIONS ARE IN PLACE WITH CALL LIGHT IN REACH. WILL CONTINUE TO MONITOR.
--- NOTE | 2020-11-29 13:00 | NUR ---
DR CLARKE AT BEDSIDE
--- NOTE | 2020-11-29 13:34 | NUR ---
PT EDUCATED ON DC INSTRUCTIONS AND NEW MEDICATIONS. REQUEST FOR MEDS TO BE FAXED TO [facility] IN [place]. BOTH VERBLAIZED UNDERSTANDING. PICC LINE REMOVED BY IFEANYI MILTON. DRESSING REMAINS IN PLACE.
--- NOTE | 2020-11-29 13:43 | NUR ---
Discharge instructions given. Patient verbalizes understanding of same. Discharged in stable condition via Wheelchair to Home with staff. All belongings sent with pt. PT DC HOME IN STABLE CONDITION VIA WHEELCHAIR WITH ALL DC INSTRUCTIONS AND BELONGINGS ACCOMAPINED BY KAVIN GOMEZ AND SPOUSE.PICC LINE DRESSING REMAINS CDI
== END 2020-11-29 13:39 | disposition home or self-care (01) | DRG 330 ==
LOC: ORM 09:53 → MS2 12:20 → ORM 14:45 → MS2 11-23 10:23
PROVIDERS: Internal Medicine; ADMIT Surgery; ATTEND Surgery
PROC: 0DTF0ZZ Resection of Right Large Intestine, Open Approach (ICD-10-PCS; principal; 2020-11-21)
PROC: 0DBB0ZZ Excision of Ileum, Open Approach (ICD-10-PCS; 2020-11-23)
PROC: 0DBL0ZZ Excision of Transverse Colon, Open Approach (ICD-10-PCS; 2020-11-23)
PROC: 02HV33Z Insertion of Infusion Device into Superior Vena Cava, Percutaneous Approach (ICD-10-PCS; 2020-11-24)
PROC: B518ZZA Fluoroscopy of Superior Vena Cava, Guidance (ICD-10-PCS; 2020-11-24)
PROC: 3E0436Z Introduction of Nutritional Substance into Central Vein, Percutaneous Approach (ICD-10-PCS; 2020-11-25)
DX: C18.0 Malignant neoplasm of cecum (principal); T81.32XA Disruption of internal operation (surgical) wound, not elsewhere classified, initial encounter; K91.89 Other postprocedural complications and disorders of digestive system; I97.191 Other postprocedural cardiac functional disturbances following other surgery; C79.89 Secondary malignant neoplasm of other specified sites; F17.220 Nicotine dependence, chewing tobacco, uncomplicated; Y83.2 Surgical operation with anastomosis, bypass or graft as the cause of abnormal reaction of the patient, or of later complication, without mention of misadventure at the time of the procedure; Z86.010 Personal history of colon polyps; Z20.822 Contact with and (suspected) exposure to COVID-19
CPT/HCPCS: J0131; J1650; J2710; Q9967

== ENCOUNTER 2021-11-29 07:01 | Day surgery (SDC) | payer BC ==
[~2021-11-29] VITALS: Ht 167.6 cm; Wt 90.7 kg
[~2021-11-29 07:01] MED LIST changes: +5-HTP100 MG PO; +AMOX/K CLAV875 M1 PO; +DRISDOL50000 UNIT PO; +L-TYROSINE500 MG PO; +METRONIDAZOL500 MG PO; +TRAMADOL HCL50 MG PO
[2021-11-29 09:34] VITALS: BP 106/77
== END 2021-11-29 09:50 | disposition home or self-care (01) | DRG 951 ==
LOC: ENDO 07:01 → ORM 08:00 → ENDO 08:00
PROVIDERS: ATTEND Surgery
PROC: 0DBN8ZX Excision of Sigmoid Colon, Via Natural or Artificial Opening Endoscopic, Diagnostic (ICD-10-PCS; principal; 2021-11-29)
DX: Z12.11 Encounter for screening for malignant neoplasm of colon (principal); K63.5 Polyp of colon; K57.30 Diverticulosis of large intestine without perforation or abscess without bleeding; F17.220 Nicotine dependence, chewing tobacco, uncomplicated; Z85.038 Personal history of other malignant neoplasm of large intestine; Z90.49 Acquired absence of other specified parts of digestive tract